=== PATIENT | male | born 1965 | race Caucasian/White ===

== ENCOUNTER 2016-08-09 18:37 | Emergency (ER) | payer MEDICARE, OTHER ==
--- NOTE | ~2016-08-09 | EKG ---
PATIENT: KERVIN KUMAR UNIT #: [id number] Ventricular Rate: 87 BPM Atrial Rate: 87 BPM P-R Interval: 154 ms QRS Duration: 84 ms Q-T Interval: 352 ms QTC Calculation(Bezet): 423 ms P [place]: 65 degrees Calculated R [place]: 87 degrees Calculated T [place]: 23 degrees Diagnosis Line: Normal sinus rhythm Diagnosis Line: T wave abnormality, consider inferior ischemia Diagnosis Line: Abnormal ECG Diagnosis Line: When compared with ECG of 27-MAR-2016 09:34, Diagnosis Line: Minimal criteria for Inferior infarct are no Diagnosis Line: longer Present Diagnosis Line: Confirmed by ANDREEA BISWAS MD ([id number]) on 08/10/2016 Diagnosis Line: 8:05:15 PM INTERPRETING MD: ZULAY MADRID
--- NOTE | ~2016-08-09 | CR72 ---
[facility] A Service of [facility] & [facility] RADIOLOGY TEXT RESULTS PATIENT: KERVIN KUMAR LOCATION: [facility] : 65 UNIT #: [id number] AGE: [address]: Kevan Medellin MD SEX: M ORDER DR: [id number] [facility] [address] [place], [place] [address] [id number] E MR#: [id number] Acc #: [id number] NAME: KERVIN KUMAR : 1965 SEX: M STUDY DATE/TIME: 08/09/2016 18:41 UNIT: [facility] ROOM: STUDY DESCRIPTION: CR Chest Single View Portable Attending Physician: Kevan Medellin M.D. Ordering Physician: Kevan Medellin M.D. Primary Care Physician: Primary Care Physician No MEDICAL IMAGING REPORT This report is preliminary unless electronic signature is present EXAM Portable AP view of the chest COMPARISON January 01, 2016 and October 26, 2014. INDICATIONS 50-year-old male with persistent cough, chest pain and dyspnea for 2 weeks. FINDINGS Cardiomediastinal silhouette is within normal limits. There is stable prominence of the bronchovascular structures. There is no evidence of pneumothorax, pleural effusion or acute airspace disease. Left-sided cardiac stent is noted. IMPRESSION 1. No acute radiographic abnormality of the chest. 2. Prior left coronary stenting. Dictated by... Sam Melton M.D. THIS IS AN ELECTRONICALLY VERIFIED REPORT Sam Melton M.D. at 08/10/2016 5:16 PM RAY/sylvie TD: 08/09/2016 21:55 JOB #: [id number] MEDICAL IMAGING REPORT Page 1 of 1 COPY
[2016-08-09 16:54] LABS: INFLUENZA A NEG (NEG); INFLUENZA B NEG (NEG)
[2016-08-09 17:07] LABS: BASOPHIL% 0.5 % (0-2.5); EOSINOPHIL# 0.1 X10e3 (0-0.7); EOSINOPHIL% 1.7 % (0.0-7.0); HEMATOCRIT 43.1 % (38.0-50.0); HEMOGLOBIN 14.1 gm/dL (13.0-16.0); LYMPHOCYTE# 1.2 X10e3 (1.0-3.5); LYMPHOCYTE% 30.3 % (17.0-45.0); MEAN CELL VOLUME 84.4 FL (83-96); MEAN CORPUSCULAR HEMOGLOBIN 27.7 PG (28-34); MEAN CORPUSCULAR HGB CONC 32.8 g/dL (30-36); MEAN PLATELET VOLUME 7.8 FL (6.5-11.5); MONOCYTE# 0.4 X10e3 (0-1.0); NEUTROPHIL# 2.3 X10e3 (1.5-7.1); NEUTROPHIL% 56.5 % (40-75); PLATELET COUNT 258 X10e3 (140-420); RED CELL DISTRIBUTION WIDTH 15.6 % (11.0-15.5)
[2016-08-09 17:09] LABS: DIFF IND NO
[2016-08-09 17:37] LABS: BILIRUBIN,TOTAL 0.4 mg/dL (0.2-2.0); CALCIUM SERUM 9.5 mg/dL (8.4-10.2); GLOM FILT RATE Estimated 87.4 mL/min (>60); POTASSIUM 3.9 mmol/L (3.5-5.1); PROTEIN TOTAL SERUM 7.5 g/dL (6.0-8.3)
[2016-08-09 17:41] LABS: BILIRUBIN,INDIRECT 0.4 mg/dL (0.0-0.9)
[~2016-08-09 18:37] MED LIST: ALBUTEROL17 GM; ALLEGRA180 MG PO; ASPIRIN ENTERI325 M1 PO; BACTRIM DS TABL1 TA1 PO; BP MED; BP PILL; CHOL MED; CHOLESTEROL PILL; CLEOCIN HCL300 M1 PO; CLOPIDOGREL75 MG PO; DIABETES PILL; FLEXERIL PO; FLEXERIL10 MG PO; FLONASE16 GM; ILOTYCIN1 G1 OP; INSULIN; KEFLEX PO; KEFLEX500 MG PO; LANTUS100 U/M1; LANTUS100 U/M1 SUBQ; LANTUS100 U/ML SUBQ; LANTUS100 UNITS/ SUBQ; LIPITOR40 MG PO; LOPRESSOR PO; NAPROSYN500 MG PO; NO MEDICATIONS; PERCOCET5/325 PO; PHENERGAN25 MG PO; TESSALON PERLE100 M1; VOLTAREN75 MG PO
[2016-08-09 19:14] LABS: POC - CKMB <1.0 ng/mL (0.0-7.9); POC - TROPONIN <0.05 ng/mL (<=0.05)
== END 2016-08-09 20:42 | disposition home or self-care (01) ==
LOC: CED 18:37
PROVIDERS: Emergency Medicine
DX: J45.909 Unspecified asthma, uncomplicated (principal); E11.65 Type 2 diabetes mellitus with hyperglycemia; I25.10 Atherosclerotic heart disease of native coronary artery without angina pectoris; I10 Essential (primary) hypertension; E78.5 Hyperlipidemia, unspecified
CPT/HCPCS: 36415; 71010; 80048; 80076; 82553; 82947; 84484; 85025; 87804; 93005; 94640; 96361; 96374; 96375; 99284; J2405

== ENCOUNTER 2016-09-08 18:25 | Emergency (ER) | payer MEDICARE, OTHER ==
--- NOTE | ~2016-09-08 | EKG ---
PATIENT: KERVIN KUMAR UNIT #: [id number] Ventricular Rate: 60 BPM Atrial Rate: 60 BPM P-R Interval: 168 ms QRS Duration: 92 ms Q-T Interval: 394 ms QTC Calculation(Bezet): 394 ms P [place]: 30 degrees Calculated R [place]: 99 degrees Calculated T [place]: -21 degrees Diagnosis Line: Normal sinus rhythm Diagnosis Line: Rightward axis Diagnosis Line: T wave abnormality, consider inferior ischemia Diagnosis Line: Abnormal ECG Diagnosis Line: When compared with ECG of 05-FEB-2013 13:16, Diagnosis Line: (unconfirmed) Diagnosis Line: T wave inversion now evident in Inferior leads Diagnosis Line: Nonspecific T wave abnormality, improved in Diagnosis Line: Lateral leads Diagnosis Line: Confirmed by SARAH BATES MD ([id number]) on Diagnosis Line: 09/11/2016 8:33:32 AM INTERPRETING MD: PAULO MADRID
== END 2016-09-08 18:33 | disposition left against medical advice (07) ==
LOC: CED 18:25
DX: Z53.21 Procedure and treatment not carried out due to patient leaving prior to being seen by health care provider (principal)
CPT/HCPCS: 93005

== ENCOUNTER 2016-09-27 15:46 | Emergency (ER) | payer MEDICARE, OTHER ==
--- NOTE | ~2016-09-27 | CR229 ---
[facility] A Service of [facility] / [facility] RADIOLOGY TEXT RESULTS PATIENT: KERVIN KUMAR LOCATION: [facility] : 65 UNIT #: [id number] AGE: [address]: Ana Hall APRN SEX: M ORDER DR: [id number] [facility] [address] [place], [place] [address] [id number] E MR#: [id number] Acc #: [id number] NAME: KERVIN KUMAR : 1965 SEX: M STUDY DATE/TIME: 09/27/2016 16:29 UNIT: [facility] ROOM: STUDY DESCRIPTION: CR Shoulder Min 2 View Lt Attending Physician: Ana Hall A.P.R.N. Ordering Physician: Ed Doctor [id number] [facility] Primary Care Physician: No Primary Care Physician MEDICAL IMAGING REPORT This report is preliminary unless electronic signature is present EXAM Left shoulder 09/27/16 INDICATIONS Shoulder pain after trauma today. FINDINGS Three views of the left shoulder are compared with 12/17/2009. No acute fracture or dislocation is seen. There is no AC joint separation. IMPRESSION Negative left shoulder. Dictated by... Marcelo Portillo Jr., M.D. THIS IS AN ELECTRONICALLY VERIFIED REPORT Marcelo Portillo Jr., M.D. at 09/28/2016 5:54 AM JULISA/stevenson TD: 09/27/2016 23:43 JOB #: [id number] MEDICAL IMAGING REPORT Page 1 of 1 COPY
== END 2016-09-27 17:28 | disposition home or self-care (01) ==
LOC: CED 15:46 → CFTX 15:46
DX: S40.012A Contusion of left shoulder, initial encounter (principal); I11.9 Hypertensive heart disease without heart failure; I51.9 Heart disease, unspecified; E78.5 Hyperlipidemia, unspecified; E11.9 Type 2 diabetes mellitus without complications; Z79.82 Long term (current) use of aspirin; Z79.4 Long term (current) use of insulin; W22.8XXA Striking against or struck by other objects, initial encounter
CPT/HCPCS: 73030; 99283

== ENCOUNTER 2016-10-03 11:48 | Emergency (ER) | payer MEDICARE, OTHER | END 2016-10-03 12:39 | disposition home or self-care (01) | LOC: CFTX 11:48 → CED 11:48 → CFTX 12:32 | DX: S40.022A Contusion of left upper arm, initial encounter (principal); E11.9 Type 2 diabetes mellitus without complications; Z86.79 Personal history of other diseases of the circulatory system; W23.0XXA Caught, crushed, jammed, or pinched between moving objects, initial encounter; Y92.811 Bus as the place of occurrence of the external cause | CPT/HCPCS: 99283 ==

== ENCOUNTER 2016-10-27 23:49 | Emergency (ER) | payer MEDICARE, OTHER ==
--- NOTE | ~2016-10-27 | CT4 ---
[facility] A Service of [facility] RADIOLOGY TEXT RESULTS PATIENT: KERVIN KUMAR LOCATION: [facility] : 65 UNIT #: [id number] AGE: [address]: Stacey Sellers MD SEX: M ORDER DR: [id number] [facility] [address] [place], [place] [address] [id number] E MR#: [id number] Acc #: [id number] NAME: KERVIN KUMAR : 1965 SEX: M STUDY DATE/TIME: 10/28/2016 2:59 UNIT: [facility] ROOM: STUDY DESCRIPTION: CT Abd and Pelv Wo Cont Attending Physician: Stacey Sellers M.D. Ordering Physician: Stacey Sellers M.D. Primary Care Physician: No Primary Care Physician MEDICAL IMAGING REPORT This report is preliminary unless electronic signature is present EXAM CT abdomen and pelvis. INDICATIONS Right-sided abdominal pain. Nausea and vomiting. Weakness. History of renal calculi. TECHNIQUE CT abdomen and pelvis without contrast. Coronal and sagittal reconstructions were obtained. This CT exam was performed with one or more of the following radiation dose reduction techniques: automatic exposure control, adjustment of mA and/or kV according to patient size, and iterative reconstruction. COMPARISON None available. FINDINGS ABDOMEN: There is mild background hepatic steatosis. The gallbladder is nondistended. Slightly nodular configuration to the undersurface of the liver is suggestive, however not definitive for background cirrhosis. The pancreas, spleen, and adrenal glands are within normal limits. There is a small 2 mm nonobstructing calculus in the lower pole right kidney. No hydronephrosis or ureteral calculi. No left renal calculi. The bowel is not dilated. There is some slight haziness to the root the mesentery, however no discrete enlarged lymph nodes are identified. This finding is nonspecific however can occasionally be seen in the setting of enteritis. Please correlate with Any clinical symptoms. The appendix is normal. Abdominal aorta is normal in caliber. [facility] A Service of [facility] RADIOLOGY TEXT RESULTS PATIENT: KERVIN KUMAR LOCATION: [facility] : 65 UNIT #: [id number] AGE: [address]: Stacey Sellers MD SEX: M ORDER DR: PELVIS: No pelvic mass. Bladder is unremarkable. No enlarged pelvic or inguinal lymph nodes. No acute osseous abnormalities. IMPRESSION 1. Nonobstructing right renal calculus. 2. Slight haziness to the root of the mesentery. This finding is nonspecific in isolation. There is, no associated lymph node enlargement. This can occasionally be seen in the setting of enteritis, however there is no small bowel pathology identified on the study. Please correlate with clinical symptoms. Dictated by... Juan Jose Paredes M.D. THIS IS AN ELECTRONICALLY VERIFIED REPORT Juan Jose Paredes M.D. at 10/29/2016 12:51 AM HORACIO/lilly TD: 10/28/2016 16:43 JOB #: [id number] MEDICAL IMAGING REPORT Page 1 of 1 COPY
[2016-10-28 02:48] LABS: URINE SOURCE CLEAN CATCH
[2016-10-28 03:12] LABS: URINE APPEARANCE CLEAR; URINE BILIRUBIN NEG (NEG); URINE BLOOD NEG (NEG); URINE COLOR YELLOW; URINE GLUCOSE >1000 MG/DL (NEG); URINE KETONE NEG (NEG); URINE LEUKOCYTE ESTERASE NEG (NEG); URINE NITRATE NEG (NEG); URINE PROTEIN NEG (NEG); URINE SPECIFIC GRAVITY 1.043 (1.003-1.035)
[2016-10-28 03:17] LABS: BASOPHIL% 0.5 % (0-2.5); EOSINOPHIL% 0.6 % (0.0-7.0); HEMATOCRIT 43.2 % (38.0-50.0); HEMOGLOBIN 14.3 gm/dL (13.0-16.0); LYMPHOCYTE% 38.9 % (17.0-45.0); MEAN CELL VOLUME 82.8 FL (83-96); MEAN CORPUSCULAR HEMOGLOBIN 27.4 PG (28-34); MEAN PLATELET VOLUME 7.8 FL (6.5-11.5); MONOCYTE# 0.5 X10e3 (0-1.0); MONOCYTE% 19.3 % (3.0-12.0); NEUTROPHIL# 1.1 X10e3 (1.5-7.1); NEUTROPHIL% 40.7 % (40-75); PLATELET COUNT 157 X10e3 (140-420); RED BLOOD COUNT 5.22 X10e (3.90-5.60); RED CELL DISTRIBUTION WIDTH 15.9 % (11.0-15.5); WHITE BLOOD COUNT 2.7 X10e3 (4.0-10.5)
[2016-10-28 03:18] LABS: DIFF IND YES
[2016-10-28 03:32] LABS: ALBUMIN SERUM 3.9 g/dL (3.5-5.0); BILIRUBIN, DIRECT 0.1 mg/dL (0.0-0.2); BILIRUBIN,INDIRECT 0.5 mg/dL (0.0-0.9); BILIRUBIN,TOTAL 0.6 mg/dL (0.2-2.0); BUN/CREATININE RATIO 18.57; CALCIUM SERUM 9.4 mg/dL (8.4-10.2); CREATININE SERUM 0.7 mg/dL (0.6-1.4); GLOM FILT RATE Estimated 109.3 mL/min (>60); POTASSIUM 3.4 mmol/L (3.5-5.1); PROTEIN TOTAL SERUM 7.2 g/dL (6.0-8.3)
[2016-10-28 03:36] LABS: CULTURE INDICATED? NO
[2016-10-28 03:52] LABS: PLATELET ESTIMATE NORMAL (NORMAL)
[2016-10-28 03:53] LABS: RBC NORMAL YES
== END 2016-10-28 04:28 | disposition home or self-care (01) ==
LOC: CED 23:49
PROVIDERS: Student in an Organized Health Care Education/Training Program
DX: K52.9 Noninfective gastroenteritis and colitis, unspecified (principal); I25.10 Atherosclerotic heart disease of native coronary artery without angina pectoris; E11.9 Type 2 diabetes mellitus without complications; Z95.1 Presence of aortocoronary bypass graft
CPT/HCPCS: 36415; 74176; 80048; 80076; 81003; 82150; 83690; 85025; 96361; 96374; 96375; 99284; J2270; J2405

== ENCOUNTER 2016-11-04 14:35 | Emergency (ER) | payer MEDICARE, OTHER | END 2016-11-04 16:27 | disposition home or self-care (01) | LOC: CFTX 14:35 → CED 14:35 → CFTX 16:27 | DX: T63.441A Toxic effect of venom of bees, accidental (unintentional), initial encounter (principal); E11.9 Type 2 diabetes mellitus without complications; I10 Essential (primary) hypertension | CPT/HCPCS: 99282 ==

== ENCOUNTER 2016-11-19 19:06 | Emergency (ER) | payer MEDICARE, OTHER ==
[~2016-11-19] VITALS: Ht 175.3 cm; Wt 101.2 kg
--- NOTE | ~2016-11-19 | EKG ---
PATIENT: KERVIN KUMAR UNIT #: [id number] Ventricular Rate: 67 BPM Atrial Rate: 67 BPM P-R Interval: 166 ms QRS Duration: 88 ms Q-T Interval: 388 ms QTC Calculation(Bezet): 409 ms P [place]: 33 degrees Calculated R [place]: 53 degrees Calculated T [place]: 74 degrees Diagnosis Line: Normal sinus rhythm Diagnosis Line: Normal ECG Diagnosis Line: When compared with ECG of 08-SEP-2016 15:35, Diagnosis Line: T wave inversion no longer evident in Inferior Diagnosis Line: leads Diagnosis Line: Confirmed by SARAH BATES MD ([id number]) on Diagnosis Line: 11/20/2016 7:54:52 AM INTERPRETING MD: PAULO MADRID
--- NOTE | ~2016-11-19 | CT71 ---
[facility] A Service of [facility] RADIOLOGY TEXT RESULTS PATIENT: KERVIN KUMAR LOCATION: [facility] : 65 UNIT #: [id number] AGE: [address]: Kavin Trejo DO SEX: M ORDER DR: [id number] [facility] [address] [place], [place] [address] [id number] E MR#: [id number] Acc #: [id number] NAME: KERVIN KUMAR : 1965 SEX: M STUDY DATE/TIME: 11/19/2016 21:21 UNIT: [facility] ROOM: STUDY DESCRIPTION: CT Head Wo Contrast Attending Physician: Kavin Trejo D.O. Ordering Physician: Kavin Trejo D.O. Primary Care Physician: Primary Care Physician No MEDICAL IMAGING REPORT This report is preliminary unless electronic signature is present EXAM CT head without contrast dated 11/19/[address] head without contrast dated 11/19/2016 2015 hours. HISTORY Dizziness, confusion started yesterday. Near syncope. High blood sugar. FINDINGS CT of the head was obtained without contrast in the axial plane as per the protocol. This CT examination was performed with one or more of the following radiation dose reduction techniques: automatic exposure control, adjustment of mA and/or kV according to patient size, and iterative reconstruction. No acute intracranial hemorrhage, space occupying mass, mass effect, midline shift or hydrocephalus. Nasal septum is slightly deviated to the left with an apical spur. Small left and moderate right nanci bullosa of the middle turbinates are noted. Paranasal sinuses are well aerated. Status post right mastoidectomy changes with mild soft tissue density in the postoperative cavity. It does not appear to have significantly changed when compared to the prior study from 6 years ago on this same November 19 day. IMPRESSION 1. No demonstrable significant intracranial abnormality. 2. Status post right mastoidectomy with mild soft tissue density in the resection cavity. It is relatively stable when compared to the prior study from 11/19/2010, 6 years ago. [facility] A Service of [facility] RADIOLOGY TEXT RESULTS PATIENT: KERVIN KUMAR LOCATION: [facility] : 65 UNIT #: [id number] AGE: [address]: Kavin Trejo DO SEX: M ORDER DR: Dictated by... Leticia Murphy M.D. THIS IS AN ELECTRONICALLY VERIFIED REPORT Leticia Murphy M.D. at 11/20/2016 7:34 PM CPR/mjs TD: 11/20/2016 09:31 JOB #: [id number] MEDICAL IMAGING REPORT Page 1 of 1 COPY
[2016-11-19 21:04] LABS: BASOPHIL% 0.4 % (0-2.5); EOSINOPHIL# 0.1 X10e3 (0-0.7); EOSINOPHIL% 1.3 % (0.0-7.0); HEMATOCRIT 41.2 % (38.0-50.0); HEMOGLOBIN 13.8 gm/dL (13.0-16.0); LYMPHOCYTE# 1.6 X10e3 (1.0-3.5); LYMPHOCYTE% 37.6 % (17.0-45.0); MEAN CELL VOLUME 83.4 FL (83-96); MEAN CORPUSCULAR HEMOGLOBIN 27.9 PG (28-34); MEAN CORPUSCULAR HGB CONC 33.4 g/dL (30-36); MEAN PLATELET VOLUME 7.9 FL (6.5-11.5); MONOCYTE# 0.5 X10e3 (0-1.0); MONOCYTE% 11.2 % (3.0-12.0); NEUTROPHIL# 2.1 X10e3 (1.5-7.1); NEUTROPHIL% 49.5 % (40-75); PLATELET COUNT 186 X10e3 (140-420); RED BLOOD COUNT 4.94 X10e (3.90-5.60); WHITE BLOOD COUNT 4.1 X10e3 (4.0-10.5)
[2016-11-19 21:07] LABS: DIFF IND NO
[2016-11-19 21:21] LABS: POC - CKMB <1.0 ng/mL (0.0-7.9); POC - TROPONIN <0.05 ng/mL (<=0.05)
[2016-11-19 21:25] LABS: BILIRUBIN, DIRECT 0.1 mg/dL (0.0-0.2); BILIRUBIN,INDIRECT 0.5 mg/dL (0.0-0.9); BILIRUBIN,TOTAL 0.6 mg/dL (0.2-2.0); BUN/CREATININE RATIO 15.55; CALCIUM SERUM 9.4 mg/dL (8.4-10.2); CREATININE SERUM 0.9 mg/dL (0.6-1.4); GLOM FILT RATE Estimated 98.5 mL/min (>60); POTASSIUM 3.7 mmol/L (3.5-5.1); PROTEIN TOTAL SERUM 7.1 g/dL (6.0-8.3)
[2016-11-19 22:27] LABS: URINE SOURCE CLEAN CATCH
[2016-11-19 22:31] LABS: URINE APPEARANCE CLEAR; URINE COLOR YELLOW
[2016-11-19 22:32] LABS: CULTURE INDICATED? NO; URINE BILIRUBIN NEG (NEG); URINE BLOOD NEG (NEG); URINE GLUCOSE 1000 MG/DL (NEG); URINE KETONE NEG (NEG); URINE LEUKOCYTE ESTERASE NEG (NEG); URINE NITRATE NEG (NEG); URINE PROTEIN NEG (NEG); URINE UROBILINOGEN NORM (NEG)
== END 2016-11-19 23:25 | disposition home or self-care (01) ==
LOC: CED 19:06
PROVIDERS: Emergency Medicine
DX: E11.649 Type 2 diabetes mellitus with hypoglycemia without coma (principal); E78.5 Hyperlipidemia, unspecified; I10 Essential (primary) hypertension; Z90.89 Acquired absence of other organs
CPT/HCPCS: 36415; 70450; 80048; 80076; 81003; 82553; 82947; 84484; 85025; 93005; 96360; 99284

== ENCOUNTER 2016-11-26 19:04 | Emergency (ER) | payer MEDICARE, OTHER ==
[~2016-11-26] VITALS: Ht 175.3 cm; Wt 102.0 kg
--- NOTE | ~2016-11-26 | EKG ---
PATIENT: KERVIN KUMAR UNIT #: [id number] Ventricular Rate: 81 BPM Atrial Rate: 81 BPM P-R Interval: 168 ms QRS Duration: 88 ms Q-T Interval: 368 ms QTC Calculation(Bezet): 427 ms P [place]: 51 degrees Calculated R [place]: 29 degrees Calculated T [place]: 62 degrees Diagnosis Line: Normal sinus rhythm Diagnosis Line: Poor R wave progression questionable lead position Diagnosis Line: or body habitus Cannot rule out , old Septal Diagnosis Line: infarct Diagnosis Line: Nonspecific T wave abnormality Diagnosis Line: Abnormal ECG Diagnosis Line: When compared with ECG of 19-NOV-2016 21:07, Diagnosis Line: No significant change was found Diagnosis Line: Confirmed by ANDREEA BISWAS MD ([id number]) on 11/29/2016 Diagnosis Line: 7:52:51 AM INTERPRETING MD: ZULAY MADRID
[2016-11-26 20:17] LABS: URINE APPEARANCE CLEAR; URINE BILIRUBIN NEG (NEG); URINE BLOOD NEG (NEG); URINE COLOR YELLOW; URINE GLUCOSE >1000 MG/DL (NEG); URINE KETONE NEG (NEG); URINE LEUKOCYTE ESTERASE NEG (NEG); URINE NITRATE NEG (NEG); URINE PH 6.5 (5-8); URINE PROTEIN NEG (NEG); URINE SOURCE CLEAN CATCH; URINE SPECIFIC GRAVITY 1.038 (1.003-1.035)
[2016-11-26 20:27] LABS: CULTURE INDICATED? NO
[2016-11-26 20:37] LABS: BASOPHIL% 0.7 % (0-2.5); EOSINOPHIL# 0.1 X10e3 (0-0.7); EOSINOPHIL% 1.2 % (0.0-7.0); HEMATOCRIT 42.2 % (38.0-50.0); LYMPHOCYTE# 1.6 X10e3 (1.0-3.5); LYMPHOCYTE% 34.3 % (17.0-45.0); MEAN CELL VOLUME 83.7 FL (83-96); MEAN CORPUSCULAR HEMOGLOBIN 27.7 PG (28-34); MEAN CORPUSCULAR HGB CONC 33.1 g/dL (30-36); MONOCYTE# 0.4 X10e3 (0-1.0); MONOCYTE% 9.8 % (3.0-12.0); NEUTROPHIL# 2.5 X10e3 (1.5-7.1); PLATELET COUNT 234 X10e3 (140-420); RED BLOOD COUNT 5.04 X10e (3.90-5.60); RED CELL DISTRIBUTION WIDTH 15.8 % (11.0-15.5); WHITE BLOOD COUNT 4.6 X10e3 (4.0-10.5)
[2016-11-26 20:38] LABS: DIFF IND NO
[2016-11-26 21:02] LABS: ALBUMIN SERUM 4.1 g/dL (3.5-5.0); ALKALINE PHOSPHATASE 127 U/L (32-92); ALT (SGPT) 51 U/L (10-40); AST (SGOT) 48 U/L (10-42); BETA HYDROXYBUTYRATE 0.08 MMOL/L (0.02-0.27); BILIRUBIN,TOTAL 0.6 mg/dL (0.2-2.0); BLOOD UREA NITROGEN 11 mg/dL (9-23); BUN/CREATININE RATIO 13.75; CALCIUM SERUM 9.4 mg/dL (8.4-10.2); CARBON DIOXIDE 27 mmol/L (22-31); CHLORIDE 96 mmol/L (100-111); CREATININE SERUM 0.8 mg/dL (0.6-1.4); GLOM FILT RATE Estimated 103.5 mL/min (>60); GLUCOSE FASTING 461 mg/dL (70-110); PROTEIN TOTAL SERUM 7.1 g/dL (6.0-8.3); SODIUM 132 mmol/L (135-145)
[2016-11-26 21:03] LABS: BILIRUBIN, DIRECT <0.1 mg/dL (0.0-0.2); BILIRUBIN,INDIRECT 0.5 mg/dL (0.0-0.9)
[2016-11-26 22:33] LABS: POC - CKMB <1.0 ng/mL (0.0-7.9); POC - TROPONIN <0.05 ng/mL (<=0.05)
== END 2016-11-27 00:25 | disposition home or self-care (01) ==
LOC: CED 19:04
PROVIDERS: Emergency Medicine
DX: E11.65 Type 2 diabetes mellitus with hyperglycemia (principal); I10 Essential (primary) hypertension; E78.5 Hyperlipidemia, unspecified
CPT/HCPCS: 36415; 80048; 80076; 81003; 82010; 82553; 82947; 84484; 85025; 93005; 96361; 96374; 99283

== ENCOUNTER 2017-01-06 23:13 | Emergency (ER) | payer MEDICARE, OTHER ==
[~2017-01-06] VITALS: Ht 175.3 cm; Wt 99.8 kg
--- NOTE | ~2017-01-06 | CR72 ---
[facility] A Service of [facility] RADIOLOGY TEXT RESULTS PATIENT: KERVIN KUMAR LOCATION: [facility] : 65 UNIT #: [id number] AGE: [address]: Pablo Blandon MD SEX: M ORDER DR: [id number] [facility] [address] [place], [place] [address] [id number] E MR#: [id number] Acc #: [id number] NAME: KERVIN KUMAR : 1965 SEX: M STUDY DATE/TIME: 01/07/2017 00:12 UNIT: [facility] ROOM: STUDY DESCRIPTION: CR Chest Single View Portable Attending Physician: Pablo Blandon M.D. Ordering Physician: Pablo Blandon M.D. Primary Care Physician: No Primary Care Physician MEDICAL IMAGING REPORT This report is preliminary unless electronic signature is present EXAM Portable chest 01/07/2017 at 0012 hours INDICATION Fatigue, congestion for 10 hours. FINDINGS AP portable chest compared with 08/09/2016. The lungs are clear. Cardiac and mediastinal contours are normal. There is no pneumothorax. Patient has a left side coronary stent. There is chronic mild elevation of the right hemidiaphragm. IMPRESSION No active disease. Dictated by... Marcelo Portillo Jr., M.D. THIS IS AN ELECTRONICALLY VERIFIED REPORT Marcelo Portillo Jr., M.D. at 01/08/2017 9:10 PM JULISA/isiah TD: 01/08/2017 08:47 JOB #: [id number] MEDICAL IMAGING REPORT Page 1 of 1 COPY
[2017-01-07 00:58] LABS: BASOPHIL% 0.7 % (0-2.5); EOSINOPHIL# 0.1 X10e3 (0-0.7); EOSINOPHIL% 1.3 % (0.0-7.0); HEMATOCRIT 43.4 % (38.0-50.0); HEMOGLOBIN 14.4 gm/dL (13.0-16.0); LYMPHOCYTE# 1.8 X10e3 (1.0-3.5); MEAN CELL VOLUME 82.7 FL (83-96); MEAN CORPUSCULAR HEMOGLOBIN 27.6 PG (28-34); MEAN CORPUSCULAR HGB CONC 33.3 g/dL (30-36); MEAN PLATELET VOLUME 7.9 FL (6.5-11.5); MONOCYTE# 0.5 X10e3 (0-1.0); MONOCYTE% 11.4 % (3.0-12.0); NEUTROPHIL# 2.3 X10e3 (1.5-7.1); NEUTROPHIL% 48.6 % (40-75); PLATELET COUNT 261 X10e3 (140-420); RED BLOOD COUNT 5.24 X10e (3.90-5.60); RED CELL DISTRIBUTION WIDTH 15.7 % (11.0-15.5); WHITE BLOOD COUNT 4.8 X10e3 (4.0-10.5)
[2017-01-07 00:59] LABS: DIFF IND NO
[2017-01-07 01:21] LABS: URINE SOURCE CLEAN CATCH
[2017-01-07 01:23] LABS: ALBUMIN SERUM 4.2 g/dL (3.5-5.0); BILIRUBIN, DIRECT 0.1 mg/dL (0.0-0.2); BILIRUBIN,INDIRECT 0.5 mg/dL (0.0-0.9); BILIRUBIN,TOTAL 0.6 mg/dL (0.2-2.0); BUN/CREATININE RATIO 12.22; CALCIUM SERUM 10.1 mg/dL (8.4-10.2); CREATININE SERUM 0.9 mg/dL (0.6-1.4); GLOM FILT RATE Estimated 98.5 mL/min (>60); POTASSIUM 3.8 mmol/L (3.5-5.1); PROTEIN TOTAL SERUM 7.6 g/dL (6.0-8.3)
[2017-01-07 01:29] LABS: URINE APPEARANCE CLEAR; URINE BILIRUBIN NEG (NEG); URINE BLOOD NEG (NEG); URINE COLOR YELLOW; URINE GLUCOSE >1000 MG/DL (NEG); URINE KETONE NEG (NEG); URINE LEUKOCYTE ESTERASE NEG (NEG); URINE NITRATE NEG (NEG); URINE PROTEIN NEG (NEG); URINE SPECIFIC GRAVITY 1.035 (1.003-1.035)
[2017-01-07 01:31] LABS: CULTURE INDICATED? NO
== END 2017-01-07 04:30 | disposition short-term general hospital (02) ==
LOC: CED 23:13
PROVIDERS: Emergency Medicine
DX: E11.65 Type 2 diabetes mellitus with hyperglycemia (principal); I10 Essential (primary) hypertension; E78.5 Hyperlipidemia, unspecified
CPT/HCPCS: 36415; 71010; 80048; 80076; 81003; 82947; 85025; 96360; 96361; 99285; J1815